=== PATIENT | female | born 1960 | race Caucasian/White ===

== ENCOUNTER 2022-11-03 21:16 | Emergency (ER) | payer SELFPAY ==
[~2022-11-03] VITALS: Ht 157.5 cm; Wt 59.1 kg
[2022-11-03] MEDS ORDERED: SYNTHROID0.075 MG PO (21:36)
[2022-11-03 21:39] LABS: BASO # 0.04 K/mm3; EOS # 0.23 K/mm3; HEMATOCRIT 40.9 %; HEMOGLOBIN 13.6 g/dL; LYMPH# 2.99 K/mm3; MEAN CELL VOLUME 95 fl; MEAN CORPUSCULAR HEMOGLOBIN 32 pg; MEAN CORPUSCULAR HGB CONC 33 g/dL; MEAN PLATELET VOLUME 7.8 fl; NEU # 3.82 K/mm3; PLATELET COUNT 285 K/mm3; RED BLOOD COUNT 4.32 M/mm3; WHITE BLOOD COUNT 7.6 K/mm3
[2022-11-03 21:49] LABS: ALBUMIN 4.4 g/dL; POTASSIUM 3.4 mmol/L (3.5-5.1); SODIUM 141 mmol/L (136-145)
[2022-11-03 21:50] LABS: CALCIUM 9.6 mg/dL
[2022-11-03 21:51] LABS: GLUCOSE 110 mg/dL
[2022-11-03 21:52] LABS: TOTAL PROTEIN 7.4 g/dL
[2022-11-03 21:53] LABS: CARBON DIOXIDE 25 mmol/L (23-31); TOTAL BILIRUBIN 0.3 mg/dL
[2022-11-03 21:57] LABS: AST-SGOT 21 U/L (15-46)
[2022-11-03 21:58] LABS: ALT/SGPT 17 U/L (0-55)
[2022-11-03 21:59] LABS: PARTIAL THROMBOPLASTIN TIME 20.1 SECONDS
[2022-11-03 22:05] LABS: TROPONIN-I < 0.030 ng/mL
[2022-11-03 22:34] LABS: URINE APPEARANCE CLEAR; URINE BILIRUBIN NEGATIVE (NEGATIVE); URINE BLOOD TRACE (NEGATIVE); URINE COLOR YELLOW; URINE GLUCOSE NEGATIVE (NEGATIVE); URINE KETONE NEGATIVE (NEGATIVE); URINE LEUKOCYTE ESTERASE TRACE (NEGATIVE); URINE NITRATE NEGATIVE (NEGATIVE); URINE PROTEIN(semi-quant) TRACE (NEGATIVE); URINE UROBILINOGEN NORMAL (NORMAL); URINE WBC 0-1 /hpf (0-3)
[2022-11-03 22:35] LABS: URINE MUCUS PRESENT (NOT PRESENT)
[2022-11-04 00:12] VITALS: BP 132/76
== END 2022-11-04 00:12 | disposition short-term general hospital (02) ==
LOC: ED 21:16 → EDSEX 21:26 → ED 11-04 00:12
PROVIDERS: Family Medicine
DX: I60.9 Nontraumatic subarachnoid hemorrhage, unspecified (principal); I10 Essential (primary) hypertension; F17.200 Nicotine dependence, unspecified, uncomplicated
CPT/HCPCS: J3010; J7050

== ENCOUNTER → 2023-03-17 | Outpatient (CLI) | payer MEDICAID ==
[~2023-03-17] MED LIST: SYNTHROID0.075 MG PO
== END ==
LOC: RAD 16:38
DX: S52.592A Other fractures of lower end of left radius, initial encounter for closed fracture (principal); R07.2 Precordial pain; X58.XXXA Exposure to other specified factors, initial encounter

== ENCOUNTER 2023-04-20 23:17 | Emergency (ER) | payer MEDICAID ==
[2023-04-21 00:11] LABS: BASO # 0.02 K/mm3 (0.02-0.10); EOS # 0.17 K/mm3 (0.04-0.40); HEMATOCRIT 39.3 % (37.0-47.0); HEMOGLOBIN 12.9 g/dL (12.5-16.0); LYMPH# 1.88 K/mm3 (1.50-4.00); MEAN CELL VOLUME 96 fl (78-100); MEAN CORPUSCULAR HEMOGLOBIN 31 pg (27-31); MEAN CORPUSCULAR HGB CONC 33 g/dL (33-37); MEAN PLATELET VOLUME 8.2 fl (7.4-10.4); MONO # 0.47 K/mm3 (0.20-0.80); NEU # 3.14 K/mm3 (1.40-6.50); PLATELET COUNT 290 K/mm3 (130-400); RED BLOOD COUNT 4.11 M/mm3 (4.10-5.30); RED CELL DISTRIBUTION WIDTH 13.9 % (11.5-14.5); WHITE BLOOD COUNT 5.7 K/mm3 (4.8-10.8)
[2023-04-21 00:19] LABS: ALBUMIN 4.4 g/dL (3.4-4.8); SODIUM 141 mmol/L (136-145)
[2023-04-21 00:20] LABS: CALCIUM 9.4 mg/dL (8.3-10.5)
[2023-04-21 00:21] LABS: GLUCOSE 100 mg/dL (65-105); TOTAL PROTEIN 7.8 g/dL (6.2-8.1)
[2023-04-21 00:22] LABS: CARBON DIOXIDE 25 mmol/L (23-31)
[2023-04-21 00:23] LABS: TOTAL BILIRUBIN 0.5 mg/dL (0.2-1.2)
[2023-04-21 00:26] LABS: AST-SGOT 17 U/L (5-34)
[2023-04-21 00:28] LABS: ALT/SGPT 22 U/L (0-55)
[2023-04-21 00:34] LABS: TROPONIN-I < 0.030 ng/mL (0.00-0.033)
[2023-04-21 00:35] LABS: ALCOHOL IN-HOUSE < 10 mg/dL (<10)
[2023-04-21] MEDS ORDERED: amLODIPine 5 MG TAB PO ONE (00:45)
[2023-04-21] MEDS ORDERED: cloNIDine 0.1 MG TAB PO ONE (02:45)
[2023-04-21 03:01] VITALS: BP 168/105
== END 2023-04-21 03:00 | disposition home or self-care (01) ==
LOC: ED 23:17
PROVIDERS: Family Medicine
DX: Z04.1 Encounter for examination and observation following transport accident (principal); I10 Essential (primary) hypertension; F17.200 Nicotine dependence, unspecified, uncomplicated

== ENCOUNTER 2024-03-24 15:18 | Emergency (ER) | payer MEDICARE ==
[~2024-03-24] VITALS: Ht 160 cm; Wt 66.9 kg
[2024-03-24 15:54] LABS: BASO # 0.03 K/mm3 (0.02-0.10); EOS # 0.06 K/mm3 (0.04-0.40); EOS % 0.8 % (1.0-5.0); HEMATOCRIT 41.7 % (37.0-47.0); HEMOGLOBIN 13.9 g/dL (12.5-16.0); LYMPH# 1.26 K/mm3 (1.50-4.00); MEAN CELL VOLUME 97 fl (78-100); MEAN CORPUSCULAR HEMOGLOBIN 33 pg (27-31); MEAN CORPUSCULAR HGB CONC 33 g/dL (33-37); MEAN PLATELET VOLUME 7.9 fl (7.4-10.4); MONO # 0.49 K/mm3 (0.20-0.80); NEU # 5.68 K/mm3 (1.40-6.50); PLATELET COUNT 391 K/mm3 (130-400); RED BLOOD COUNT 4.28 M/mm3 (4.10-5.30); RED CELL DISTRIBUTION WIDTH 12.3 % (11.5-14.5); WHITE BLOOD COUNT 7.5 K/mm3 (4.8-10.8)
[2024-03-24 15:59] LABS: SODIUM 138 mmol/L (136-145)
[2024-03-24 16:01] LABS: ALBUMIN 4.6 g/dL (3.4-4.8); CALCIUM 9.7 mg/dL (8.3-10.5)
[2024-03-24 16:03] LABS: GLUCOSE 100 mg/dL (65-105); TOTAL PROTEIN 8.5 g/dL (6.2-8.1)
[2024-03-24 16:04] LABS: CARBON DIOXIDE 22 mmol/L (23-31); TOTAL BILIRUBIN 0.6 mg/dL (0.2-1.2)
[2024-03-24 16:08] LABS: AST-SGOT 17 U/L (5-34)
[2024-03-24 16:10] LABS: ALT/SGPT 15 U/L (0-55)
[2024-03-24 16:14] LABS: ALCOHOL IN-HOUSE < 10 mg/dL (<10)
[2024-03-24 17:03] LABS: URINE APPEARANCE SLIGHTLY CLOUDY (CLEAR); URINE COLOR YELLOW (YELLOW)
[2024-03-24 17:04] LABS: URINE BILIRUBIN NEGATIVE (NEGATIVE); URINE BLOOD 1+ (NEGATIVE); URINE GLUCOSE NEGATIVE (NEGATIVE); URINE KETONE TRACE (NEGATIVE); URINE LEUKOCYTE ESTERASE TRACE (NEGATIVE); URINE NITRATE NEGATIVE (NEGATIVE); URINE PROTEIN(semi-quant) 2+ (NEGATIVE)
[2024-03-24 17:10] LABS: URINE MUCUS PRESENT (NOT PRESENT)
[2024-03-24] MEDS ORDERED: BACTRIM DS TAB1 EACH PO (17:17)
[2024-03-24] MEDS ORDERED: cefTRIAXone 1 G in Water For Injection,Sterile 10 ML IV ONE (17:45)
[2024-03-24 18:05] VITALS: BP 175/123
== END 2024-03-24 18:09 | disposition home or self-care (01) ==
LOC: ED 15:18
PROVIDERS: Nurse Practitioner
DX: N39.0 Urinary tract infection, site not specified (principal); E03.9 Hypothyroidism, unspecified; R79.89 Other specified abnormal findings of blood chemistry; W19.XXXA Unspecified fall, initial encounter
CPT/HCPCS: J0696